=== PATIENT | female | born 1935 | race Caucasian/White ===

== ENCOUNTER → 2016-07-10 | Outpatient (CLI) | payer MEDICARE, OTHER ==
--- NOTE | 2016-07-12 13:23 | RADONC ---
RADIATION ONCOLOGY FOLLOWUP NOTE DATE: 07/10/2016 CHART NUMBER: [id number] DIAGNOSIS: Right breast cancer. STAGE: Stage is IA, [id number]. ECOG PERFORMANCE STATUS: 0 FOLLOWUP NOTE: Ms. Ruiz is a very pleasant, 81-year-old white female with the diagnosis of a stage IA, [id number] moderately differentiated infiltrating ductal carcinoma of the right breast who is presenting to us today for routine followup visit 5 years post completion of external beam radiation therapy. The patient presents today reporting that she is doing quite well with no complaints at this time related to her radiation therapy or disease. She has no breast or bone pain. REVIEW OF SYSTEMS: The patient's review of systems is noncontributory. Denies nausea, vomiting, fevers, chills, night sweats, diplopia, headaches, anxiety or depression, anorexia, weight loss, visual disturbances, chest pain, urinary or bowel difficulties, bone pain, or neurological problems. PHYSICAL EXAMINATION: The patient is a well-developed, well-nourished 81-year-old female in no acute distress. HEENT exam is normocephalic, atraumatic. Extraocular movements are intact. There is no palpable cervical, supraclavicular, infraclavicular, axillary, or inguinal lymphadenopathy present. Lungs are clear to auscultation and percussion. Heart has a regular rate and rhythm. Abdomen is benign with no hepatosplenomegaly, masses, or tenderness. Breast examination reveals no masses or discharge bilaterally. Skeletal examination reveals no tenderness to pressure or percussion of the bony skeleton. Extremities reveal no clubbing, cyanosis, or edema. Neurologic exam is grossly intact, as is the remainder of the physical examination. ASSESSMENT: The patient is clinically RIC at this time and will be seen by us again in 1 year for further followup. She will also continue to be followed by her other physicians as well. cc: MD Peewee Mejia MD
== END ==
LOC: M ONCR 10:55
PROVIDERS: ATTEND Radiology Radiation Oncology
DX: C50.312 Malignant neoplasm of lower-inner quadrant of left female breast (principal)

== ENCOUNTER → 2017-02-18 | Outpatient (CLI) | payer MEDICARE, OTHER ==
--- NOTE | 2017-02-18 10:21 | REPMRS ---
Patient History The patient states she had a clinical breast exam in 02/08 Patient has history of breast cancer at age 75. Family history of breast cancer in paternal aunt at age 50 or over. Malignant ultrasound-guided core biopsy of the right breast, March 06, 2011. Benign lumpectomy of the right breast, 1979. Radiation therapy of the right breast. Took unspecified hormones for 5 years. Digital Woman Screen Mammo: February 18, 2017 - Exam #: [id number] Bilateral CC and MLO view(s) were taken. Technologist: Khushi Ball, Technologist Prior study comparison: February 15, 2016, digital woman screen mammo performed at [facility]. February 13, 2015, digital woman screen mammo performed at [facility]. FINDINGS: The breast tissue is heterogeneously dense. This may lower the sensitivity of mammography. There has been no change in the appearance of the mammogram from the prior studies. There is a moderate amount of residual fibroglandular tissue which is fairly symmetric. There is no interval development of dominant mass, areas of architectural distortion, or clustered microcalcification typical of malignancy. ASSESSMENT: BI-RADS/ACR category 1 mammogram. Negative. Recommendation Routine screening mammogram in 1 year (for women over age 40). This mammogram was interpreted with the aid of an FDA-approved computer-aided dectection system. Electronically Signed By: Venkata Norton MD 02/18/17 [id number]
--- NOTE | 2017-02-19 09:00 | DEXA ---
AP SPINE L1 - L4 1.024 -1.4 0.5 LT FEMUR TOTAL 0.718 -2.3 -0.3 RT FEMUR TOTAL 0.633 -3.0 -1.0 TOTAL BODY TOTAL OTHER DUAL FEMUR FRAX* ASSESSMENT Risk factors: Not performed. 10 year probability of fracture Major osteoporotic fracture % Hip fracture % COMMENTS: There is low bone density of the spine. There is low bone density of the left hip. There is osteoporosis of the right hip. The decreased density of the spine does not represent a significant change. The decreased density of the left hip does not represent a significant change. The decreased density of the right hip does represent a significant change. The density of the spine has decreased 6.4% since the initial exam on 2001. The spine density has decreased 0.6% since the most recent exam on 02/15/2016. The density of the left hip has decreased 16.2% since the initial exam on 2001. The density of the left hip has decreased 1.4% since the most recent exam on . The density of the right hip has decreased 18.8% since the initial exam on 09/11. The density of the right hip has decreased 2.5% since the most recent exam on . FOLLOW-UP: Recommendation for the next bone density exam: 2 years. MASOUD
== END ==
LOC: M WHC 08:39
PROVIDERS: ATTEND Internal Medicine Medical Oncology
DX: Z12.31 Encounter for screening mammogram for malignant neoplasm of breast (principal); Z85.3 Personal history of malignant neoplasm of breast; M85.9 Disorder of bone density and structure, unspecified
CPT/HCPCS: 77080; G0202

== ENCOUNTER → 2017-07-16 | Outpatient (CLI) | payer MEDICARE, OTHER | LOC: M ONCR 10:30 | DX: C50.312 Malignant neoplasm of lower-inner quadrant of left female breast (principal) | CPT/HCPCS: G0463 ==

== ENCOUNTER → 2018-02-19 | Outpatient (CLI) | payer MEDICARE, OTHER | LOC: M WHC 07:33 | DX: Z12.31 Encounter for screening mammogram for malignant neoplasm of breast (principal); Z92.3 Personal history of irradiation; Z92.29 Personal history of other drug therapy; Z85.3 Personal history of malignant neoplasm of breast | CPT/HCPCS: 77067 ==

== ENCOUNTER → 2018-07-15 | Outpatient (CLI) | payer MEDICARE, OTHER ==
[~2018-07-15] MED LIST: CALTCHW5 PO; LOTR5CAP2 PO
--- NOTE | 2018-07-16 11:32 | RADONC ---
RADIATION ONCOLOGY FOLLOWUP NOTE DATE: CHART NUMBER: [id number] DIAGNOSIS: Right breast cancer. STAGE: I A, [id number] ECOG PERFORMANCE STATUS: 0 FOLLOWUP NOTE: Mrs. Ruiz is an 83-year-old female with a diagnosis of a stage I A, D6lT0U3, moderately differentiated infiltrating ductal carcinoma of the right breast who presents today for routine followup visit almost 7 years after completion of her external beam radiotherapy. REVIEW OF SYSTEMS: She denies any nausea, vomiting, coughing, sputum production or hemoptysis. Her energy level is such that she is able to maintain most day-to-day activities without any alteration of her lifestyle. She denies bone pain or neurologic problems. The remainder of the review of systems is noncontributory. PHYSICAL EXAMINATION: She is a well-developed, well-nourished female, in no acute distress. HEENT: Normocephalic. EOMs intact. PERRLA. Fundi benign. Lungs: Clear to auscultation and percussion. Heart: Regular, without murmurs. Abdomen: Without evidence of hepatomegaly, masses, deep abdominal tenderness. Breasts: Examination reveals the breasts to be bilaterally symmetrical with no masses in either breast. Skeletal system: Without percussive tenderness. Extremities: Without cyanosis, clubbing or edema. Neurologic: Examination physiologic. IMPRESSION: Clinically RIC. PLAN: She will not be returning to this clinic for routine followup but will followup with her referring physicians as per their discretion. cc: MD Peewee Mejia MD
== END ==
LOC: M ONCR 10:05
PROVIDERS: ATTEND Radiology Radiation Oncology
DX: Z08 Encounter for follow-up examination after completed treatment for malignant neoplasm (principal); Z85.3 Personal history of malignant neoplasm of breast; Z92.3 Personal history of irradiation

== ENCOUNTER → 2019-02-22 | Outpatient (CLI) | payer MEDICARE, OTHER ==
--- NOTE | 2019-02-22 10:26 | REPMRS ---
Patient History The patient states she has not had a clinical breast exam in over a year. Patient has history of cancer in the right breast at age 75 and had previous chest radiation therapy at age 75. Family history of breast cancer at age 50 or over in paternal aunt. Malignant ultrasound-guided core biopsy of the right breast, March 06, 2011. Benign lumpectomy of the right breast, 1979. Radiation therapy of the right breast. Took unspecified hormones for 5 years. 3D TOMOSYNTHESIS WAS PERFORMED. Digital Woman Screen Mammo: February 22, 2019 - Exam #: [id number] Bilateral CC and MLO view(s) were taken. Technologist: Karen Cole, Technologist Prior study comparison: February 19, 2018, bilateral digital woman screen mammo performed at [facility]. February 18, 2017, digital woman screen mammo performed at [facility]. FINDINGS: The breast tissue is heterogeneously dense. This may lower the sensitivity of mammography. There has been no change in the appearance of the mammogram from the prior studies. There is a moderate amount of residual fibroglandular tissue which is fairly symmetric. There is no interval development of dominant mass, areas of architectural distortion, or clustered microcalcification typical of malignancy. Assessment: BI-RADS/ACR category 1 mammogram. Negative Mammogram. Recommendation Routine screening mammogram in 1 year (for women over age 40). This mammogram was interpreted with the aid of an FDA-approved computer-aided dectection system. Electronically Signed By: Venkata Norton MD 02/22/19 [id number]
== END ==
LOC: M WHC 07:51
PROVIDERS: ATTEND Internal Medicine Medical Oncology
DX: Z12.31 Encounter for screening mammogram for malignant neoplasm of breast (principal); Z85.3 Personal history of malignant neoplasm of breast; Z92.3 Personal history of irradiation

== ENCOUNTER → 2019-06-11 | Outpatient (REF) | payer MEDICARE, OTHER ==
[2019-06-11 13:28] LABS: FOLATE 23.8 NG/ML
== END ==
LOC: M LAB REF 12:22
PROVIDERS: ATTEND Family Medicine
DX: D75.89 Other specified diseases of blood and blood-forming organs (principal)

== ENCOUNTER → 2020-03-15 | Outpatient (CLI) | payer MEDICARE ==
--- NOTE | 2020-03-15 10:25 | REPMRS ---
Patient History The patient states she has not had a clinical breast exam in over a year. Family history of breast cancer at age 50 or over in paternal aunt. Malignant ultrasound-guided core biopsy of the right breast, March 06, 2011. Benign lumpectomy of the right breast, 1979. Radiation therapy of the right breast. Took unspecified hormones for 5 years. 3D TOMOSYNTHESIS WAS PERFORMED. Volpara breast density c. Digital Woman Screen Mammo: March 15, 2020 - Exam #: [id number] Bilateral CC and MLO view(s) were taken. Technologist: Kaylee Solis, Technologist Prior study comparison: February 22, 2019, bilateral digital woman screen mammo performed at [facility]. February 19, 2018, bilateral digital woman screen mammo performed at [facility]. FINDINGS: The breast tissue is heterogeneously dense. This may lower the sensitivity of mammography. There has been no change in the appearance of the mammogram from the prior studies. There is a moderate amount of residual fibroglandular tissue which is fairly symmetric. There is no interval development of dominant mass, areas of architectural distortion, or clustered microcalcification typical of malignancy. Assessment: BI-RADS/ACR category 1 mammogram. Negative Mammogram. Recommendation Routine screening mammogram in 1 year (for women over age 40). This mammogram was interpreted with the aid of an FDA-approved computer-aided dectection system. Electronically Signed By: Venkata Norton MD 03/15/20 [id number]
== END ==
LOC: M WHC 09:29
PROVIDERS: ATTEND Family Medicine
DX: Z12.31 Encounter for screening mammogram for malignant neoplasm of breast (principal)

== ENCOUNTER → 2021-03-16 | Outpatient (CLI) | payer MEDICARE ==
--- NOTE | 2021-03-16 10:00 | REPMRS ---
Patient History The patient states she has not had a clinical breast exam in over a year. Family history of breast cancer at age 50 or over in paternal aunt. Malignant ultrasound-guided core biopsy of the right breast, March 06, 2011. Benign lumpectomy of the right breast, 1979. Radiation therapy of the right breast. Took unspecified hormones for 5 years. Patient states no breast complaints today. Patient has signed MRS History Sheet. Digital Woman Screen Mammo: March 16, 2021 - Exam #: [id number] Bilateral CC and MLO view(s) were taken. Technologist: Mireya Paul, Technologist Prior study comparison: March 15, 2020, bilateral digital woman screen mammo performed at [facility]. February 22, 2019, bilateral digital woman screen mammo performed at [facility]. FINDINGS: The breast tissue is heterogeneously dense. This may lower the sensitivity of mammography. Screening. Digital screening (2D) mammography was performed bilaterally in the CC and MLO projections. Additionally, breast tomosynthesis (3D mammography) was performed bilaterally in the CC and MLO projections. Todays exam was compared to the prior exam/exams. By history, the patient has no complaints of a palpable breast abnormality or other significant breast complaints. The breasts are unchanged in size and shape.Once again, dense heterogenous fibroglandular elements are seen bilaterally in a stable appearing pattern but to such a degree that the sensitivity of the mammogram in detecting cancer is decreased. There are no natasha-soft tissue densities or spiculated masses. There is no internal architectural distortion. Once again, stable benign appearing calcifications are seen.There are no suspicious natasha-calcific clusters. Skin thickening or nipple retraction is not present. IMPRESSION: BI-RADS Category 2- Benign Findings. There is no evidence of malignant alteration of the breasts. Followup examination recommended in one year. The Volpara volumetric breast density category is C, the breasts are heterogenously dense which may obscure small masses. This mammogram was read with the assistance of [employer],an FDA approved computer aided detection system for mammography. Due to the density of the breasts or Tyrer Cuzick score of 20% or greater, MRI/whole breast screening ultrasound is warranted. Negative x-ray reports should not delay surgical consultation if a dominant or clinically suspicious mass is present. Not all breast cancers can be identified by mammography. Therefore, we recommend that you continue to perform regular breast self-examination and physical examination and then promptly contact your physician of any concerns or changes. Adenosis and dense breasts may obscure an underlying neoplasm. Assessment: BI-RADS/ACR category 2 mammogram. Benign Findings. Recommendation Routine screening mammogram of both breasts in 1 year. Electronically Signed By: Marv Hubbard DO 03/16/21 [id number]
== END ==
LOC: M WHC 08:59
PROVIDERS: ATTEND Internal Medicine Medical Oncology
DX: Z12.31 Encounter for screening mammogram for malignant neoplasm of breast (principal); Z85.3 Personal history of malignant neoplasm of breast; Z92.3 Personal history of irradiation; Z92.29 Personal history of other drug therapy; R92.1 Mammographic calcification found on diagnostic imaging of breast

== ENCOUNTER → 2021-03-16 | Outpatient (REF) | payer MEDICARE | LOC: M LAB REF 16:31 | PROVIDERS: ATTEND Family Medicine | DX: R41.3 Other amnesia (principal) ==

== ENCOUNTER → 2021-04-02 | Outpatient (CLI) | payer MEDICARE ==
--- NOTE | 2021-04-02 14:28 | DEXAMM ---
INDICATION: OSTEO. COMPARISON: 02/18/2017 as well as other prior exams. TECHNIQUE: Bone density was measured using dual-energy x-ray absorptiometry (DEXA). FINDINGS: AP SPINE L1-L4 BMD 0.915 g/cm2 Young Adult T-Score -2.3 Age Matched Z-Score -0.4. LT FEMUR, TOTAL BMD 0.591 g/cm2 Young Adult T-Score -3.3 Age Matched Z-Score -1.1. LT NECK BMD 0.668 g/cm2 Young Adult T-Score -2.7 Age Matched Z-Score -0.3. RT FEMUR, TOTAL BMD 0.564 g/cm2 Young Adult T-Score -3.5 Age Matched Z-Score -1.3. RT NECK BMD 0.659 g/cm2 Young Adult T-Score -2.7 Age Matched Z-Score -0.4. IMPRESSION: There is low bone density of the spine. There is osteoporosis of the left hip. There is osteoporosis of the right hip. The density of the spine has decreased 16.4% since the initial exam on 09/11/2001. The density of the spine decreased 10.6% since most recent exam on 02/18/2017. The density of the left hip has decreased 31.0% since initial exam on 09/11/2001. The density of the left hip has decreased 17.7% since most recent exam on 02/18/2017. The density of the right hip has decreased 27.7% since the initial exam on 09/11/2001. The density of the right hip has decreased 10.9% since the most recent exam on 02/18/2017. FOLLOW-UP: Recommendation for the next bone density exam: 2 years. <Electronically signed by Venkata Norton > 04/02/21 [id number]
== END ==
LOC: M WHC 07:57
PROVIDERS: ATTEND Nurse Practitioner Adult Health
DX: M81.0 Age-related osteoporosis without current pathological fracture (principal); M85.89 Other specified disorders of bone density and structure, multiple sites

== ENCOUNTER → 2022-03-27 | Outpatient (CLI) | payer MEDICARE ==
[~2022-03-27] MED LIST changes: +DONE10TA90; +MEMA10TA19
== END ==
LOC: M WHC 13:56
PROVIDERS: ATTEND Internal Medicine Medical Oncology
DX: Z12.31 Encounter for screening mammogram for malignant neoplasm of breast (principal)

== ENCOUNTER → 2023-03-26 | Outpatient (CLI) | payer MEDICARE | LOC: M RAD 08:46 | PROVIDERS: ATTEND Internal Medicine Hematology & Oncology | DX: R74.01 Elevation of levels of liver transaminase levels (principal) ==

== ENCOUNTER → 2023-03-28 | Outpatient (CLI) | payer MEDICARE | LOC: M WHC 11:28 | PROVIDERS: ATTEND Internal Medicine Medical Oncology | DX: Z12.31 Encounter for screening mammogram for malignant neoplasm of breast (principal) ==

== ENCOUNTER → 2023-08-18 | Outpatient (REF) | payer MEDICARE ==
[2023-08-19 12:57] LABS: RSV AMPLIFICATION NEGATIVE (NEGATIVE)
== END ==
LOC: M LAB REF 12:08
PROVIDERS: ATTEND Nurse Practitioner Family
DX: J06.9 Acute upper respiratory infection, unspecified (principal)

== ENCOUNTER → 2023-11-20 | Outpatient (REF) | payer MEDICARE ==
[~2023-11-20] MED LIST changes: +MEMA10TA; -MEMA10TA19
== END ==
LOC: M LAB REF 11:58
PROVIDERS: ATTEND Family Medicine
DX: R74.01 Elevation of levels of liver transaminase levels (principal)

== ENCOUNTER 2024-02-17 15:52 | Emergency (ER) | payer MEDICARE ==
[~2024-02-17] VITALS: Ht 160 cm; Wt 53.2 kg
[2024-02-17 15:53] VITALS: BP 175/77; TEMP 96.2; O2SAT 97
[2024-02-17] MEDS: LIDOCAINE 1% MDV 20ML VIAL SC ONE (22:15)
== END 2024-02-17 22:53 | disposition home or self-care (01) ==
LOC: M ED 15:52
DX: S01.81XA Laceration without foreign body of other part of head, initial encounter (principal); W22.8XXA Striking against or struck by other objects, initial encounter; Y92.009 Unspecified place in unspecified non-institutional (private) residence as the place of occurrence of the external cause; Y93.9 Activity, unspecified; Y99.9 Unspecified external cause status; I10 Essential (primary) hypertension; F03.90 Unspecified dementia, unspecified severity, without behavioral disturbance, psychotic disturbance, mood disturbance, and anxiety; Z79.899 Other long term (current) drug therapy; Z88.8 Allergy status to other drugs, medicaments and biological substances